=== PATIENT | female | born 1970 | race Caucasian/White ===

== ENCOUNTER 2020-02-07 09:25 | Outpatient (CLI) | payer OTHER, SELFPAY ==
--- NOTE | ~2020-02-07 | NM_ITS ---
EXAMINATION: NM hepatobiliary w pharm DATE: 02/07/2020 12:37 INDICATION: Right upper quadrant abdominal pain. COMPARISON: None. TECHNIQUE: 5.43 mCi Tc-99m mebrofenin (Choletec) was administered intravenously. Scintigraphic image s of the abdomen were obtained for one hour. Then, 2.0 mcg sincalide (Kinevac) IV was administered, a nd imaging was continued for 30 minutes. FINDINGS: There is normal clearance of radiotracer from the blood pool. There is homogeneous tracer u ptake by the liver. Activity progresses to the bowel and gallbladder. Gallbladder ejection fraction (GBEF) was 76%. Note that most patients with gallbladder dysfunction have GBEF < 35%, which overlaps with the broad normal range of 10-90%. IMPRESSION: 1. Normal hepatobiliary scintigraphy. Reviewed, dictated and finalized at location A. IAL EFFECTS DESIGNER
== END 2020-02-07 09:26 | disposition home or self-care (01) ==
LOC: ANHIMG 09:27
PROVIDERS: PCP Family Medicine; Visit Provider Family Medicine
DX: R10.11 Right upper quadrant pain (principal)
CPT/HCPCS: 78227; A9537; J2805

== ENCOUNTER → 2020-12-12 00:19 | Outpatient (CLI) | payer OTHER, SELFPAY ==
[2020-12-14 17:27] LABS: SARS-CoV-2 RNA PCR Negative
== END ==
PROVIDERS: PCP Family Medicine; Visit Provider Nurse Practitioner Family
DX: R68.89 Other general symptoms and signs (principal); Z20.822 Contact with and (suspected) exposure to COVID-19
CPT/HCPCS: C9803; U0003; U0005

== ENCOUNTER 2022-05-17 07:47 | Outpatient (CLI) | payer BC, SELFPAY ==
[2022-05-17 08:47] LABS: Appearance Urine Clear (Clear); Bilirubin Urine Negative (Negative); Blood Urine Negative (Negative); Color Urine Yellow (Yellow); Glucose Urine UA 2+ mg/dL (Negative); Ketones Urine Negative (Negative); Leukocyte Esterase Ur Negative LEU/UL (NEGATIVE); Nitrate Urine Negative (Negative); Protein Urine Negative (Negative); Urobilinogen Urine 0.2 mg/dL (<2.0); pH Urine 6.5 (5.0-9.0)
[2022-05-17 08:53] LABS: Mucus Urine Rare /lpf; RBC Urine 0-2 /hpf (0-2); Squamous Epithelial Cell Urine Rare /hpf (Few); WBC Urine 0-3 /hpf (0-3)
[2022-05-17 08:54] LABS: Basophils Percent Auto 0.4 % (0.2-1.2); Eosinophils Absolute Auto 0.1 K/mm3 (0-0.3); Eosinophils Percent Auto 1.2 % (0-4.4); Hematocrit 45.3 % (37.0-47.0); Hemoglobin 14.7 g/dL (12.0-15.0); Immature Granulocyte Absolute 0.03 K/mm3 (0.00-0.031); Immature Granulocyte Percent A 0.4 % (0-0.5); Lymphocytes Absolute Auto 2.16 K/mm3 (0.9-3.2); Lymphocytes Percent Auto 26.7 % (18.3-44.2); Mean Corpuscular HGB Conc 32.5 g/dl (32-36); Mean Corpuscular Volume 92.4 fl (80-100); Mean Platelet Volume 10.8 fl (7.4-10.4); Monocytes Absolute Auto 0.4 K/mm3 (0.1-0.6); Monocytes Percent Auto 5.1 % (2.6-8.5); Neutrophils Absolute Auto 5.4 K/mm3 (1.3-6.7); Neutrophils Percent Auto 66.2 % (45.5-73.1); Platelet Count Result 274 k/mm3 (150-375); Red Cell Distribution Width 13.7 % (11.5-14.5); White Blood Count 8.1 K/mm3 (4.5-10.0)
[2022-05-17 08:54] LABS: Add Urine Microscopic? YES
[2022-05-17 08:56] LABS: Alanine Aminotransferase 63 U/L (6-35); Albumin Level 4.2 g/dL (3.5-5.1); Alkaline Phosphatase 103 U/L (38-126); Anion Gap 5 mmol/L (8-16); Aspartate Amino Transferase 39 U/L (14-36); Bilirubin,Total 0.7 mg/dL (0.2-1.3); Blood Urea Nitrogen 11 mg/dL (7-17); Calcium 8.8 mg/dL (8.4-10.2); Carbon Dioxide 30 mmol/L (22-30); Chloride 104 mmol/L (98-107); Estimated Glomerular Filt Rate > 60; Glucose 193 mg/dL (65-110); Potassium 3.8 mmol/L (3.4-5.0); Sodium 139 mmol/L (137-145)
== END 2022-05-17 07:48 | disposition home or self-care (01) ==
LOC: ANHLAB 07:54
PROVIDERS: PCP Family Medicine; Visit Provider Physician Assistant
DX: R53.83 Other fatigue (principal); R42 Dizziness and giddiness; R32 Unspecified urinary incontinence
CPT/HCPCS: 36415; 80053; 81001; 84443; 85025; 87086

== ENCOUNTER 2023-02-01 11:39 | Outpatient (CLI) | payer BC, SELFPAY ==
--- NOTE | ~2023-02-01 | XR_ITS ---
AP view of the pelvis and AP and lateral views of the bilateral hips Clinical history: Pain Findings: No acute fracture or dislocation is seen. Osseous alignment is anatomic. Bilateral hip and SI joint spaces are preserved. Soft tissues are unremarkable. Impression: No significant abnormality is seen. Reviewed, dictated and finalized at [facility]. OPEDIC BRACE MAKER Impression: No significant abnormality is seen.
== END 2023-02-01 11:40 ==
PROVIDERS: PCP Physician Assistant Medical; Visit Provider Physician Assistant Medical
DX: M25.551 Pain in right hip (principal); M25.552 Pain in left hip
CPT/HCPCS: 73521

== ENCOUNTER 2023-03-14 13:44 | Outpatient (CLI) | payer BC, SELFPAY ==
[2023-03-14 22:35] LABS: Influenza A QL RT-PCR Negative (Negative); Influenza B QL RT-PCR Negative (Negative); RSV RNA, RT-PCR Negative (Negative); SARS-CoV-2 RNA PCR Negative (Negative)
== END 2023-03-14 13:45 | disposition home or self-care (01) ==
LOC: ANHLAB 13:46
PROVIDERS: PCP Family Medicine; Visit Provider Physician Assistant
DX: R53.83 Other fatigue (principal); R07.9 Chest pain, unspecified; Z20.822 Contact with and (suspected) exposure to COVID-19
CPT/HCPCS: 87637

== ENCOUNTER 2023-03-14 14:03 | Outpatient (CLI) | payer BC, SELFPAY ==
--- NOTE | ~2023-03-14 | XR_ITS ---
EXAMINATION: XR chest 2V Exam Date/Time: 03/14/2023 14:18 DIRECTOR SAFETY HISTORY: R07.9 - Chest pain, unspecified Comparison: None. RESULT: Lines, tubes, and devices: None. Lungs and pleura: Clear. Cardiomediastinal silhouette: Normal. Other: No acute osseous or upper abdominal finding. IMPRESSION: No acute cardiopulmonary process. Reviewed, dictated and finalized at location K. CTOR SAFETY
== END 2023-03-14 14:04 ==
LOC: MICIMG 14:03
PROVIDERS: PCP Physician Assistant; Visit Provider Physician Assistant
DX: R07.9 Chest pain, unspecified (principal)
CPT/HCPCS: 71046

== ENCOUNTER 2023-04-20 08:55 | Outpatient (CLI) | payer BC, SELFPAY ==
--- NOTE | 2023-04-20 09:21 | EST_ITS ---
Patient Info Name: Marilyn Fox Age: 52 years : 1970 Gender: Female Ht: 67 in Wt: 200 lbs BSA: 2.10 m2 HR: 143 bpm BP: 149 / 83 mmHg Heart Rhythm: Tachycardia Technical Quality: Fair Exam Date: 04/20/2023 9:46 AM Exam Location: Echo Lab Exam Room: [facility] STRESS Patient Status: Outpatient Admit Date: 04/20/2023 Staff Ordering Physician: Leopoldo Olea PA-C Partnership Marketing Manager: Tania Ellison RCS Attending Provider: DR. WALKER Referring Physician: Lefty JASON; Exercise Technologist: Marianne Mcadams CT Exercise Physician: Foster Walker DO Exam Type: CA stress echo Study Info Indications - CHEST PAIN Summary 1. 1. Negative Tay exercise stress test for ischemic ST changes by ECG criteria. 2. 2. Good functional capacity, achieving 10.9 METs of workload. 3. 3. Appropriate HR response to exercise. 4. 4. Appropriate HR recovery at 1 minute post exercise. 5. 5. Negative stress echocardiogram for ischemia by wall motion analysis. 6. 6. Patient informed of the above results. Stress Echo Findings Left Ventricle Appropriate increase in LV endocardial thickening with systole. Appropriate augmentation of contractility with systole. No wall motion abnormality. Left Ventricle Normal LV systolic function, no wall motion abnormality. Right Ventricle Severe RV enlargement. Protocol: Tay Stress ECG Details Stage: REST Duration (min): 3 min : 6 sec Speed (mph): 0.0 Grade (%): 0 HR (bpm): 64 SBP (mmHg): 105 DBP (mmHg): 69 METS: --- Stage: REST Duration (min): 9 min : 49 sec Speed (mph): 0.0 Grade (%): 0 HR (bpm): 66 SBP (mmHg): 105 DBP (mmHg): 69 METS: --- Stage: REST Duration (min): 11 min : 52 sec Speed (mph): 0.0 Grade (%): 0 HR (bpm): 68 SBP (mmHg): 105 DBP (mmHg): 69 METS: --- Stage: STAGE 1 Duration (min): 1 min : 0 sec Speed (mph): 1.7 Grade (%): 10 HR (bpm): 113 SBP (mmHg): 105 DBP (mmHg): 69 METS: --- Stage: STAGE 1 Duration (min): 2 min : 0 sec Speed (mph): 1.7 Grade (%): 10 HR (bpm): 127 SBP (mmHg): 105 DBP (mmHg): 69 METS: --- Stage: STAGE 1 Duration (min): 3 min : 0 sec Speed (mph): 1.7 Grade (%): 10 HR (bpm): 128 SBP (mmHg): 149 DBP (mmHg): 83 METS: --- Stage: STAGE 2 Duration (min): 1 min : 0 sec Speed (mph): 2.5 Grade (%): 12 HR (bpm): 133 SBP (mmHg): 149 DBP (mmHg): 83 METS: --- Stage: STAGE 2 Duration (min): 2 min : 0 sec Speed (mph): 2.5 Grade (%): 12 HR (bpm): 133 SBP (mmHg): 174 DBP (mmHg): 76 METS: --- Stage: STAGE 2 Duration (min): 3 min : 0 sec Speed (mph): 2.5 Grade (%): 12 HR (bpm): --- SBP (mmHg): 174 DBP (mmHg): 76 METS: --- Stage: STAGE 3 Duration (min): 1 min : 0 sec Speed (mph): 3.4 Grade (%): 14 HR (bpm): 138 SBP (mmHg): 174 DBP (mmHg): 76 METS: --- Stage: STAGE 3 Duration (min): 2 min : 0 sec Speed (mph): 3.4 Grade (%): 14 HR (bpm): 137 SBP (mmHg): 174 DBP (mmHg): 76 METS:
== END 2023-04-20 08:56 | disposition home or self-care (01) ==
LOC: ANHCARD 08:56
PROVIDERS: PCP Family Medicine; Visit Provider Physician Assistant
DX: E11.65 Type 2 diabetes mellitus with hyperglycemia (principal); E78.5 Hyperlipidemia, unspecified; G47.33 Obstructive sleep apnea (adult) (pediatric); R06.00 Dyspnea, unspecified; R07.9 Chest pain, unspecified; E88.810 Metabolic syndrome
CPT/HCPCS: 93351

== ENCOUNTER 2023-06-13 12:36 | Outpatient (CLI) | payer BC, SELFPAY ==
--- NOTE | 2023-06-13 12:43 | ECHO_ITS ---
Patient Info Name: Marilyn Fox Age: 52 years : 1970 Gender: Female Ht: 67 in Wt: 200 lbs BSA: 2.10 m2 HR: 80 bpm BP: 142 / 87 mmHg Heart Rhythm: Sinus Rhythm Technical Quality: Good Exam Date: 06/13/2023 12:45 PM Exam Location: Echo Lab Patient Status: Outpatient Admit Date: 06/13/2023 Staff Ordering Physician: Foster Bustillos DO Welding Teacher: Hollie Blackmon RDCS Attending Provider: Foster Bustillos DO Referring Physician: Apollo OGLESBY; Exam Type: CA echo doppler color flow Study Info Indications I51.7 - Cardiomegaly Complete two-dimensional, color flow and Doppler transthoracic echocardiogram is performed. Summary 1. Complete two-dimensional, color flow and Doppler transthoracic echocardiogram is performed. 2. Left ventricular chamber dimension is normal. 3. Left ventricular systolic function is normal, estimated at 60-65%. 4. The left ventricular diastolic function is abnormal. 5. E/e' 12 is mildly elevated. 6. There is trace mitral valve regurgitation. 7. There is trace tricuspid valve regurgitation. 8. No pulmonary hypertension, estimated pulmonary arterial systolic pressure is 29 mmHg. 9. There is trace pulmonic regurgitation. Left Ventricle E/e' 12 is mildly elevated. Left ventricular chamber dimension is normal. Left ventricular systolic function is normal, estimated at 60-65%. The left ventricular diastolic function is abnormal. Right Ventricle Right ventricular systolic function is normal and with normal TAPSE 2.1 cm. Right ventricular chamber dimension is normal. Left Atria Left atrial chamber dimension is normal. Right Atria Right atrial chamber dimension is normal. Aortic Valve The aortic valve is trileaflet. There is no aortic valve stenosis. There is no aortic valve regurgitation. Pulmonic Valve There is trace pulmonic regurgitation. Mitral Valve There is no mitral valve stenosis. There is trace mitral valve regurgitation. Tricuspid Valve There is trace tricuspid valve regurgitation. No pulmonary hypertension, estimated pulmonary arterial systolic pressure is 29 mmHg. Pericardium/Pleural There is no pericardial effusion. Inferior Vena Cava Normal inferior vena cava with >50% collapse upon inspiration consistent with normal right atrial pressure, 5 mmHg. Aorta The aortic root size at the sinus of Valsalva is normal. Left Ventricular Outflow Tract Name Value Normal LVOT 2D LVOT Diameter 2.1 cm LVOT Doppler LVOT Peak Gradient 4 mmHg LVOT Mean Gradient 2 mmHg LVOT VTI 19 cm LVOT VTI/AV VTI Ratio 0.8 LVOT Stroke Volume 68 ml LVOT CO 4.6 l/min LVOT CI 2.2 l/min/m2 Pulmonic Valve Name Value Normal RVOT Doppler RVOT Peak Gradient 2 mmHg PV Doppler
== END 2023-06-13 12:37 | disposition home or self-care (01) ==
LOC: ANHCARD 12:38
PROVIDERS: PCP Family Medicine; Visit Provider Internal Medicine Cardiovascular Disease
DX: I51.7 Cardiomegaly (principal)
CPT/HCPCS: 93306

== ENCOUNTER 2023-06-14 07:40 | Outpatient (CLI) | payer BC, SELFPAY ==
--- NOTE | ~2023-06-14 | CT_ITS ---
EXAMINATION: CTA chest PE protocol DATE: 06/14/2023 08:31 INDICATION: Shortness of breath. TECHNIQUE: Computed tomography angiography (CTA) of the chest was performed with 100 mL Omnipaque-350 intravenous contrast timed to evaluate the pulmonary arteries. Coronal maximum intensity projection 3D-reconstructions were created by the technologist. Automated exposure control and iterative reconst ruction technique were employed. The dose-length product was 366.26 mGy-cm. COMPARISON: Chest 2 views 03/14/2023 FINDINGS: The lungs demonstrate mild atelectasis. No pleural effusion. The heart size is normal. No p ericardial effusion. The central pulmonary arteries are enlarged, consistent with pulmonary arterial hypertension. There is no pulmonary embolus. There is a 17 mm mass in left adrenal gland measuring lo w attenuation, consistent with an adenoma. There is mild thoracic spondylosis. IMPRESSION: 1. No pulmonary embolus. Reviewed, dictated and finalized at location A. IMPRESSION: 1. No pulmonary embolus.
[2023-06-14 08:25] LABS: Estimated Glomerular Filt Rate > 60
== END 2023-06-14 07:41 | disposition home or self-care (01) ==
PROVIDERS: PCP Family Medicine; Visit Provider Internal Medicine Cardiovascular Disease
DX: R06.02 Shortness of breath (principal)
CPT/HCPCS: 71275; Q9967

== ENCOUNTER 2024-01-19 13:34 | Outpatient (CLI) | payer BC, SELFPAY ==
--- NOTE | ~2024-01-19 | MR_ITS ---
MRI of the right hip Clinical history: Pain Technique: Coronal T1-weighted, T2-weighted, and proton-density fat-sat images, and axial T1-weighted and proton-density fat-sat images were acquired through the pelvis. Coronal T2-weighted images and c oronal, axial, and sagittal proton-density fat-sat images were acquired through the right hip. Findings: There is no fracture or avascular necrosis hip. Bone marrow signals of the proximal femora and visual is pelvic bones are unremarkable. Bilateral hip joint spaces are preserved. No high-grade chondromalacia. No joint effusion. No right acetabular labral tear evident. There is mild tendinosis of the distal right gluteal tendon to the greater trochanter, probable incip ient developing trochanteric bursitis. Muscle bellies themselves are intact, without muscle atrophy o r edema otherwise. No soft tissue mass or other fluid collection seen. IMPRESSION: Probable developing right greater trochanteric bursitis with mild tendinosis of the distal gluteal te ndons near the greater trochanter. Reviewed, dictated and finalized at location M. MACHINE SHOP SUPERVISOR IMPRESSION: Probable developing right greater trochanteric bursitis with mild tendinosis of the distal gluteal tendons near the greater trochanter.
== END 2024-01-19 13:35 | disposition home or self-care (01) ==
PROVIDERS: PCP Family Medicine; Visit Provider Nurse Practitioner Family
DX: M25.551 Pain in right hip (principal)
CPT/HCPCS: 73721

== ENCOUNTER 2024-05-17 08:44 | Outpatient (CLI) | payer BC, SELFPAY | END 2024-05-17 08:45 | disposition home or self-care (01) | LOC: MICIMG 08:45 | PROVIDERS: PCP Family Medicine; Visit Provider Physician Assistant | DX: J18.9 Pneumonia, unspecified organism (principal) | CPT/HCPCS: 71250 ==

== ENCOUNTER 2024-10-04 10:21 | Outpatient (CLI) | payer BC, SELFPAY ==
--- NOTE | ~2024-10-04 | XR_ITS ---
EXAM: XR clavicle BI DATE: 10/04/2024 10:39 HISTORY: L swelling X 1 MONTH ON MEDIAL END . COMPARISON: None available. FINDINGS: Normal mineralization. No fracture. 1 cm superior displacement of the left medial clavicul ar head. No lytic or blastic lesion. Moderate bilateral AC joint osteoarthritis. No erosion or perios teal change. Soft tissues within normal limits. IMPRESSION: Superior displacement of the left medial clavicular head. If there has been trauma, this may represent clavicular head dislocation. If there are signs of infection, consider septic arthritis . No radiographic evidence of osteomyelitis. Reviewed, dictated and finalized at location K. IMPRESSION: Superior displacement of the left medial clavicular head. If there has been trauma, this may represent clavicular head dislocation. If there are s igns of infection, consider septic arthritis. No radiographic evidence of osteo myelitis.
--- OUTSIDE RECORDS SUMMARY | 2024-10-04 10:28 | XMS_ITS | Encounter Summary ---
Author Organization [facility] Address [address] [place] [address] Care Team Providers Care Industrial Plant Custodian Name Role Phone Ronak Mcclure MD Primary Care Provider Encounter Details Date Type Department Care Team (Late st Contact Info) Description 10/02/2024 External Device Data [facility] ABSTRACTION Provider, Abstract NO ADDRESS ON FILE Social History Tobacco Use Types Packs/Day Years Used Date Smoking Tobacco: Never Comments No Sex and Gender Information Value Date Recorded Sex Assigned at Not on file Legal Sex Female 3:28 AM SECURITY INTERN Gender Identity Not on file Sexual Orientation Not on file documented as of this encounter Plan of Treatment Not on file documented as of this encounter Visit Diagnoses Not on filedocumented in this encounter Care Teams Industrial Plant Custodian Relationship Specialty Start Date End Date Ronak Mcclure MD [address] [place] [address] PCP - General Family Practice 03/07/16 documented as of this encounter
--- OUTSIDE RECORDS SUMMARY | 2024-10-04 10:28 | XMS_ITS | Encounter Summary ---
Author Organization [employer] Address [address] [place] [address] Care Team Providers Care Investor Relations Associate Name Role Phone Ronak Mcclure MD Primary Care Provider [phone] Encounter Details Date Type Department Care Team (Late st Contact Info) Description 06/30/2003 Emergency [facility] EMERGENCY [facility] Richie Quiroga [place] [facility] [place] [address] Er, Authorized P NO ADDRESS ON FILE DIZZINESS AND GIDDINESS (Primary Dx) Social History Tobacco Use Types Packs/Day Years Used Date Smoking Tobacco: Never Assessed Comments Unknown Sex and Gender Information Value Date Recorded Sex Assigned at Not on file 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
--- OUTSIDE RECORDS SUMMARY | 2024-10-04 10:28 | XMS_ITS | Encounter Summary ---
Author Organization [facility] Address [address] [place] [address] Care Team Providers Care Senior Shipping Clerk Name Role Phone Ronak Mcclure MD Primary Care Provider Encounter Details Date Type Department Care Team (Late st Contact Info) Description 06/30/2003 Outpatient Historical [facility] Support Serv. (Ad[facility]iology[facility]) [address] 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
--- OUTSIDE RECORDS SUMMARY | 2024-10-04 10:28 | XMS_ITS | Clinical Summary ---
Author Organization [facility] Address [address] [facility] [place] [address] Care Team Providers Care Cake Icer Name Role Phone Ronak Mcclure MD Primary Care Provider [phone] Allergies No known active allergies Medications metFORMIN (GLUCOPHAGE) 500 mg tablet Take 500 mg by mouth daily with breakfast. Active atorvastatin (LIPITOR) 40 mg tablet Take 40 mg by mouth late in the day. Active oxyCODONE-aceta minophen (PERCOCET) 5-325 mg tablet Take 1-2 Tablet by mouth every 4 hours as needed for Pain, Severe. Max Daily Amount: 12 Tablet 20 Tablet None 6 Active meclizine (ANTIVERT) 25 mg tablet Take one tablet (25mg) orally three times a day as needed for dizziness 14 Tablet 12/28/2021 9:46 AM CDT 2 Active methylPREDNISol one (MEDROL DOSPACK) 4 mg Tablets, Dose Pack Take as directed on package 21 Each 12/28/2021 9:46 AM CDT 2 Active vilazodone (Viibryd) 40 mg Tablet Take 1 tablet by mouth daily must administer with a meal/food. 90 Tablet 2 08/03/2022 10:51 AM CDT 2 Active tacrolimus (PROTOPIC) 0.1 % Ointment APPPLY SMALL AMOUNT TO UPPER EYELIDS AND AROUND EYE TWICE DAILY FOR 2 WEEKS 30 Gram 2 04/15/2022 1:09 PM INPUT OUTPUT CLERK 3 Active cyclobenzaprine (FLEXERIL) 5 mg Tablet Take 1 Tablet (5 mg) by mouth 3 times daily as needed for muscle spasms. 30 Tablet 12/28/2022 3:08 PM CDT 3 Active methylPREDNISol one (MEDROL DOSPACK) 4 mg Tablets, Dose Pack TAKE DIRECTED ON PACKAGE. 21 Each 02/02/2023 8:39 AM INPUT OUTPUT CLERK 3 Active SUMAtriptan (IMITREX) 50 mg tablet Take 1 to 2 tabs by mouth after onset of migraines, may repeat after 2 hours if headache returns. Not to exceed 200mg in 24 hours. 9 Tablet 5 10/21/2023 3:26 PM CDT 4 Active SUMAtriptan (IMITREX) 50 mg tablet TAKE 1-2 TABLETS BY MOUTH AT ONSET OF MIGRAINE. MAY REPEAT DOSE IN 2 HOURS IF HEADACHE RETURNS. DO NOT EXCEED 4 TABLETS IN 24 HOURS. 9 Tablet 5 4 Active valACYclovir (VALTREX) 1 gram tablet TAKE 2 TABLETS BY MOUTH TWICE DAILY FOR 1 DAY 12 Tablet 5 01/19/2024 3:18 PM CDT 4 Active vilazodone (VIIBRYD) 40 mg Tablet Take 1 Tablet (40 mg) by mouth daily with food. 90 Tablet 3 09/01/2024 12:47 PM CDT 4 Active progesterone micronized (PROMETRIUM) 100 mg Capsule Take 1 Capsule (100 mg) by mouth daily at bedtime. 30 Capsule 1 02/02/2024 3:28 PM INPUT OUTPUT CLERK 4 Active azithromycin (ZITHROMAX) 250 mg tablet TAKE 2 TABLETS BY MOUTH A SINGLE DOSE ON DAY 1, THEN TAKE 1 TABLET DAILY ON DAYS 2 THRU 5. 6 Tablet 04/25/2024 8:13 AM INPUT OUTPUT CLERK 5 Active fluticasone propionate (FLONASE) 50 mcg/spray [place], Suspension nasal inhaler Use 1 spray in each nostril daily 16 Gram 2 06/07/2024 3:17 PM CDT 5 Active empagliflozin (Jardiance) 25 mg tablet Take 1 Tablet (25 mg) by mouth daily. 90 Tablet 2 09/01/2024 12:47 PM CDT 5 Active atorvastatin (LIPITOR) 80 mg tablet Take 1 Tablet (80 mg) by mouth daily. 90 Tablet 2 07/05/2024 4:09 PM CDT 5 Active hydrOXYzine HCL (ATARAX) 10 mg tablet Take 1 Tablet (10 mg) by mouth 3 times daily as needed FOR ANXIETY. 30 Tablet 5 09/01/2024 12:47 PM CDT 5 Active semaglutide (Ozempic) 1 mg/dose (4 mg/3 mL) Pen Injector Inject 1 mg by subcutaneous injection every 7 days. 3 mL 2 09/19/2024 4:04 PM CDT 5 Active estradioL 0.05 mg/24 hr patch Apply 1 patch to skin twice a week by transdermal route. 8 Patch 1 09/27/2024 6:48 PM CDT 5 Active progesterone micronized (PROMETRIUM) 100 mg Capsule Take 1 Capsule (100 mg) by mouth daily at bedtime. 90 Capsule 09/27/2024 6:48 PM CDT 5 Active Encounters Date Type Department Care Team Description 10/02/2024 External Device Data [facility] ABSTRACTION Provider, Abstract 10/01/2024 External Device Data [facility] ABSTRACTION Provider, Abstract 09/03/2024 External Device Data [facility] ABSTRACTION Provider, Abstract 08/08/2024 External Device Data [facility] ABSTRACTION Provider, Abstract 08/06/2024 External Device Data [facility] ABSTRACTION Provider, Abstract 07/23/2024 External Device Data [facility] ABSTRACTION Provider, Abstract from Last 3 Months Immunizations Immunization Administration Dates Next Due ([employer])(12 YR UP) COVID-19 VACCINE - EMERGENCY USE AUTHORIZATION, MRNA, [id number](PF) 30 MCG/0.3 ML IM SUSP 07/16/2020,06/27/2020 Social History Tobacco Use Types Packs/Day Years Used Date Smoking Tobacco: Never Comments No Sex and Gender Information Value Date Recorded Sex Assigned at Not on file Legal Sex Female 3:28 AM INPUT OUTPUT CLERK Gender Identity Not on file Sexual Orientation Not on file Last Filed Vital Signs Vital Sign Reading Time Taken Comments Blood Pressure 120/75 03/07/2016 3:00 PM INPUT OUTPUT CLERK Pulse 63 03/07/2016 3:00 PM INPUT OUTPUT CLERK Temperature 36.5 C (97.7 F) 03/07/2016 12:59 PM INPUT OUTPUT CLERK Respiratory Rate 18 03/07/2016 3:00 PM INPUT OUTPUT CLERK Oxygen Saturation 98% 03/07/2016 3:00 PM INPUT OUTPUT CLERK Inhaled Oxygen Concentration - - Weight 90.7 kg (200 lb) 03/07/2016 12:59 PM INPUT OUTPUT CLERK Height 170.2 cm (5' 7) 03/07/2016 12:59 PM INPUT OUTPUT CLERK Body Mass Index 31.32 03/07/2016 12:59 PM INPUT OUTPUT CLERK Plan of Treatment Health Maintenance Due Date Last Done Comments DIABETES ANNUAL FOOT EXAM 1988 DIABETES ANNUAL RETINAL EXAM 1988 DIABETES HBA1C Q 6 MONTHS 1988 DIABETES MICROALBUMIN ANNUAL SCREEN 1988 LDL CHOLESTEROL ANNUAL 1988 DTAP/TDAP/TD VACCINES (1 - Tdap) 1989 HEPATITIS B VACCINES (1 of 3 - 19+ 3-dose series) 1989 HPV/Cotest (21-29) 11/04/1991 CERVICAL CANCER SCREENING 2000 HPV/Cotest (30-65) 2000 PAP SMEAR 2000 BREAST CANCER SCREENING 2010 COLORECTAL SCREENING 11/04/2015 Colorectal Cancer Screening 11/04/2015 FIT-DNA Q 3 years 11/04/2015 FIT/FOBT Q 1 year 11/04/2015 Flex Sig/CT Colonography Q 5 years 11/04/2015 ZOSTER VACCINE (1 of 2) 2020 COVID-19 Vaccine (3 season) 2023, 06/27/2020 INFLUENZA VACCINE (#1) 2024 Insurance AETNA CHOICE POS II RX [employer] Commercial RX [employer] Commercial RX [employer] Commercial RX [facility] (INTERNAL) [facility] Plans RX [facility] [employer] Care Teams Cake Icer Relationship Specialty Start Date End Date Ronak Mcclure MD [address] [facility] [address] [place] [address] PCP - General Family Practice 03/07/16
--- OUTSIDE RECORDS SUMMARY | 2024-10-04 10:28 | XMS_ITS | Encounter Summary ---
Author Organization [employer] [facility] Address [address] [place] [address] Care Team Providers Care Organic Section Technical Lead Name Role Phone Ronak Mcclure MD Primary Care Provider Encounter Details Date Type Department Care Team (Late st Contact Info) Description 06/30/2003 Outpatient Historical [facility] Support Serv. ([facility]) [address] 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
== END 2024-10-04 10:22 | disposition home or self-care (01) ==
PROVIDERS: PCP Family Medicine; Visit Provider Family Medicine
DX: M89.319 Hypertrophy of bone, unspecified shoulder (principal); S43.205A Unspecified dislocation of left sternoclavicular joint, initial encounter
CPT/HCPCS: 73000

== ENCOUNTER 2024-10-22 09:50 | Outpatient (CLI) | payer BC, SELFPAY ==
--- NOTE | ~2024-10-22 | CT_ITS ---
CT Scan of the Chest without Contrast: Clinical Indication: Anterior dislocation of the left sternoclavicular joint Technique: Contiguous sections were acquired throughout the chest without intravenous contrast. Dose reduction technique was used on this scan by utilizing automated exposure control and iterative recon struction technique. The dose-length product (DLP) was 289.24 mGy-cm. COMPARISON: 05/17/2024 Findings: There is no evidence of any significant mediastinal, hilar or axillary lymphadenopathy. The mediastin al soft tissues appear normal. There is no evidence of pleural or pericardial effusion. Stable 5 mm lingular nodule. Images through the upper abdomen reveal stable left adrenal adenoma. There is asymmetric degenerative change of the left sternoclavicular joint with minimal superior posi tioning of the left clavicular head as compared to the right at the joint, no emiliana dislocation evide nt. Impression: Minimal superior position of the left clavicular head at the sternoclavicular joint as compared to th e right side, but no emiliana dislocation seen. There is asymmetric degenerative change of the lateral c lavicular joint. Stable 5 mm lingular pulmonary nodule. Reviewed, dictated and finalized at [facility]. Impression: Minimal superior position of the left clavicular head at the sternoclavicular j oint as compared to the right side, but no emiliana dislocation seen. There is asy mmetric degenerative change of the lateral clavicular joint. Stable 5 mm lingular pulmonary nodule.
== END 2024-10-22 09:51 | disposition home or self-care (01) ==
PROVIDERS: PCP Family Medicine; Visit Provider Orthopaedic Surgery
DX: S43.21 Anterior subluxation and dislocation of sternoclavicular joint (principal); X58.XXXD Exposure to other specified factors, subsequent encounter
CPT/HCPCS: 71250

== ENCOUNTER 2025-02-02 17:10 | Emergency (ER) | payer BC, SELFPAY ==
[2025-02-02] VITALS (8 sets, daily range): BP systolic 106–152; BP diastolic 67–79; PULSE 80–92; RESP 16–26; TEMP 36.4–36.8; O2SAT 97–100
--- NOTE | ~2025-02-02 | XR_ITS ---
EXAMINATION: XR elbow LT min 3V, 02/02/2025 17:[address] INTERPRETER HISTORY: fall,deformity COMPARISON: No comparisons available. Findings: The radial head is dislocated. There is a comminuted fracture of the proximal ulna with intra-articular extension. Large joint effusion. Soft tissue swelling noted. Impression: Fracture dislocation detailed above Reviewed, dictated and finalized at location [address] [address] INTERPRETER Impression: Fracture dislocation detailed above
--- NOTE | ~2025-02-02 | XR_ITS ---
EXAMINATION: XR elbow LT 2V, 02/02/2025 18:50 [employer] INST[employer]ER HISTORY: s/p reduction COMPARISON: No comparisons available. Findings: Interval reduction of the dislocated radial head. Comminuted fracture of the proximal ulna redemonstrated with intra-articular extension. No significant degenerative changes. Soft tissues unremarkable. Impression: Interval reduction Reviewed, dictated and finalized at location [employer] Impression: Interval reduction
--- NOTE | 2025-02-02 17:17 | ED.UPPEXIN ---
HPI - Extremity Injury (Upper) General Chief Complaint: Extremity Injury, Upper Stated Complaint: fall with elbow injury Time Seen by Provider: 02/02/25 17:14 Source: patient and EMS Mode of arrival: EMS Limitations: no limitations History of Present Illness HPI narrative: This is a 54-year-old female with history of hyperlipidemia anxiety who presents to the ED for fall with left elbow injury. Patient was reportedly roller skating when she fell backwards and hit her left elbow. She had immediate pain to the area. EMS gave 150 mcg of fentanyl with minimal improvement of her symptoms. Denies numbness, tingling. She feels that she cannot move her fingers though. Related Data Home Medications ?Medication ?Instructions ?Recorded ?Confirmed ?Last Taken ?Type estradiol 0.05 mg/24 hr weekly 1 patch transdermal WEEKLY 12/20/24 12/20/24 Unknown History transdermal patch progesterone micronized 100 mg 100 mg PO QAM 12/20/24 12/20/24 Unknown History capsule Allergies Allergy/AdvReac Type Severity Reaction Status Date / Time buspirone Allergy Unknown Diarrhea Verified 12/20/24 08:17 citalopram Allergy Unknown Unknown Verified 12/20/24 08:17 sertraline Allergy Unknown Unknown Verified 12/20/24 08:17 Review of Systems Review of Systems: Gen.: Denies fevers or chills Eyes: Denies eye pain or visual change ENT: Denies congestion Respiratory: Denies shortness of breath or cough CV: Denies chest pain or palpitations GI: Denies abdominal pain nausea, emesis or diarrhea denies burning, urgency, frequency or hematuria Musculoskeletal: As per HPI Neuro: Denies numbness, tingling, weakness or focal weakness Skin: Denies rash Except as documented, all other systems reviewed and negative [facility] Past Medical History Medical History Right hip pain Trochanteric bursitis, left hip Trochanteric bursitis, right hip Depression Urinary incontinence Wellness examination Dizziness Surgical History Surgical History H/O foot surgery bunionectomies screw put in Family History Family History Mother Hypertension Family history of diabetes mellitus in first degree relative Father Cerebrovascular accident Sibling Family history of mental disorder Social History Social History Social History: Smoking status: Never smoker Second hand tobacco smoke exposure: No Alcohol intake: never Substance use: never Substance use type: does not use Do You Feel Safe in your Home?: Yes Lack of Transportation: No Lack of Food: Never True Current Housing: I Have Housing Concerned About Future Housing: No Difficulty Paying Gas/Electric Bills: No Difficulty Paying for Meds: No Currently Unemployed: No Education: Don't Know Difficulty w/ Childcare or Family Care: No Living arrangements: with family Occupation/Education: occupation 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 CARDIOVASCULAR: Regular rate and rhythm without murmurs rubs or gallops. ABDOMINAL: Soft, nontender, nondistended, no rebound or guarding MUSCULOSKELETAl: Obvious deformity to the left elbow with tenderness to minimal palpation over the proximal radius. Neurovascularly intact distally. NEURO: Awake and alert. Following commands, speech normal, no focal deficits SKIN:: Warm, dry. No rashes lesions or abrasions PSYCHIATRIC: Normal affect/mood, Course Vital Signs Vital signs: Vital Signs Pulse Rate 84 02/02/25 17:16 Respiratory Rate 26 H 02/02/25 17:16 Blood Pressure 152/77 H 02/02/25 17:16 Pulse Oximetry 97 02/02/25 17:16 Temperature 97.6 F 02/02/25 19:00 Pulse Rate 87 02/02/25 19:00 Respiratory Rate 23 H 02/02/25 19:00 Blood Pressure 106/75 02/02/25 19:00 Pulse Oximetry 99 02/02/25 19:00 Oxygen Delivery Room Air 02/02/25 19:00 Oxygen Flow Rate 2 02/02/25 18:45 Procedures Orthopedic Fracture Reduction Fracture #1: Fracture Reduction date: 02/02/25 Fracture Reduction time: 18:20 Time Out Performed: Yes Side: left Fracture Reduction Location: radius and ulna Analgesia: procedural sedation Pre-Procedure Neuro Vascular Exam: normal Technique: direct manipulation and traction/counter-traction Post Reduction X-rays Demonstrate: acceptable reduction Post-reduction neuro exam: intact Post-reduction vascular exam: intact Splint Applied: Yes Patient Tolerated Procedure: well and no complications Procedural Sedation Procedural Sedation #1: Procedural Sedation Date: 02/02/25 Procedural Sedation Time: 18:20 Presedation Evaluation: AOx4 Procedure: Left monteggia fracture reduction Provider Performed: sedation and procedure Informed Consent Obtained: yes Equipment in Room: bag and mask, capnography, phototypesetting equipment monitor, oxygen, pulse oximeter and suction Plan for Sedation: moderate sedation ASA Class: II Mallampati Classification: class III NPO Status: unknown Explanation to Patient/Family: Risk/Benefits/Alternatives and Pt/Family agreed with plan Pt. Educated on Procedural Sedation: Yes Re-evaluated immediately prior: Yes Preparation: phototypesetting equipment monitor applied, pulse oximeter, capnometry used, supplemental O2 applied, suction/airway equipment at bedside and IV secured IV Propofol dose (mg): 150 Complications: hypoventilation Interventions: oxygen applied and airway repositioned Total Sedation Time (min): 20 MDM - Extremity Injury (Upper) MDM Narrative Medical decision making narrative: 54-year-old female Presenting for fall and left elbow injury. On initial evaluation patient was in moderate distress, afebrile, hemodynamic stable. Differentials include but are not limited to: Fracture, sprain, strain, contusion Notable exam findings: Deformity and tenderness over the left lateral elbow, sensation intact distally but difficulty extending fingers. Vascularly intact. I personally reviewed the patient's images and interpret as follows: Elbow x-ray left was consistent with a Monteggia fracture with lateral dislocation of the radial head. Given x-ray findings, I did discuss the case with Dr. Pereira, orthopedic surgery, he did recommend reduction of the fracture dislocation and transfer to [facility] for further evaluation and management. Discussed this with the patient and she was agreeable to this plan fracture was reduced as above patient tolerated procedure well. Repeat x-ray on my read did show successful reduction of the radial head with improved alignment of the fracture. She was placed in a splint. I spoke with Dr. Santo, EM, will accept the patient in ED to ED transfer. Patient was transferred in a stable condition. Medical Records Attestation: I reviewed the patient's medical records. Lab Data Attestation: I reviewed the patient's lab results. Imaging Data Attestation: I personally reviewed and interpreted this imaging study as follows: Radiologist's impression: Impressions Elbow X-Ray 02/02/25 17:51 Impression: Fracture dislocation detailed above Elbow X-Ray 02/02/25 19:16 Impression: Interval reduction Discharge Plan Discharge Clinical Impression: Monteggia fracture of left ulna Patient Disposition: Acute Care Hospital Condition: Stable Patient Language: Estonian Prescriptions: No Action fluticasone propionate 50 mcg/actuation spray,suspension 1 spray intranasal DAILY Qty: 16 2RF Rx Instructions: administer into each nostril estradiol 0.05 mg/24 hr patch weekly 1 patch transdermal WEEKLY progesterone micronized 100 mg capsule 100 mg PO QAM Rx Instructions: off 7 days; repeat cycle semaglutide 2 mg/dose (8 mg/3 mL) pen injector 2 mg subcut WEEKLY Qty: 3 2RF sumatriptan succinate [Imitrex] 50 mg tablet 50 mg PO .COMPLEX Qty: 9 5RF Rx Instructions: take 1 to 2 tabs PO after onset of migraines, may repeat after 2 hours if headache returns. Not to exceed 200mg in 24 hours. Jardiance 25 mg tablet 25 mg PO DAILY Qty: 90 2RF atorvastatin 80 mg tablet See Rx Instructions .ROUTE .COMPLEX Qty: 90 2RF Dose Instruction: Take 1 Tablet (80 mg) by mouth daily. Rx Instructions: Take 1 Tablet (80 mg) by mouth daily. vilazodone [Viibryd] 40 mg tablet 40 mg PO DAILY Qty: 90 3RF Rx Instructions: must administer with a meal/food hydroxyzine HCl 10 mg tablet See Rx Instructions .ROUTE .COMPLEX Qty: 30 5RF Dose Instruction: Take 1 Tablet (10 mg) by mouth 3 times daily as needed for anxiety. Rx Instructions: Take 1 Tablet (10 mg) by mouth 3 times daily as needed for anxiety. Follow-up/Referrals: Ronak Mcclure MD [Primary Care Provider, Family Practice]
[2025-02-02] MEDS: HYDROmorphone HCL INJ (*CRX) 1 MG/ML SYR IV PUSH ×2 (17:18→18:04)
[2025-02-02] MEDS: ONDANSETRON INJ 4 MG/2 ML VIAL IV PUSH (17:18)
== END 2025-02-02 19:19 | disposition short-term general hospital (02) ==
PROVIDERS: Emergency Provider Student in an Organized Health Care Education/Training Program; PCP Family Medicine
DX: S52.272A Monteggia's fracture of left ulna, initial encounter for closed fracture (principal); W18.30XA Fall on same level, unspecified, initial encounter; Y93.51 Activity, roller skating (inline) and skateboarding; E78.5 Hyperlipidemia, unspecified
CPT/HCPCS: 24565; 73070; 73080; 96374; 96375; 96376; 99285; A4565; J1171; J2405